=== PATIENT | female | born 1990 | race Caucasian/White ===

== ENCOUNTER 2022-05-20 19:27 | Emergency (ER) | payer SELFPAY ==
[~2022-05-20] VITALS: Ht 165.1 cm; Wt 90.7 kg
[2022-05-20 19:56] VITALS: BP_SYST 124
--- NOTE | 2022-05-20 20:39 | NUR ---
Pt bib self from home CC lower back pain radiates to thighs and bilateral extremities with numbness and tingling sensation. Onset yesterday morning pain scale 10/10 Nausea related to pain. Pt notes chronic back pain since giving child 3 years ago.
[2022-05-20] MEDS ORDERED: KETOROLAC TROMETHAMINE 60 MG/2 ML VIAL IM ONE (21:00)
--- NOTE | 2022-05-20 21:00 | NUR ---
ER at bedside examining patient.
[2022-05-20] MEDS ORDERED: METH-634 PO (21:31)
[2022-05-20] MEDS ORDERED: IBUP-1969 PO (21:31)
--- NOTE | 2022-05-20 22:52 | NUR ---
Patient given written and verbal discharge instructions and verbalizes understanding. ER MD discussed with patient the results and treatment provided. Patient in stable condition. ID arm band removed. Opportunity for questions provided and answered. Medication side effect fact sheet provided.
[2022-05-20 22:53] VITALS: BP_SYST 114
== END 2022-05-20 22:53 | disposition home or self-care (01) ==
LOC: SED 19:27
DX: M54.50 Low back pain, unspecified (principal); R20.2 Paresthesia of skin; Z91.018 Allergy to other foods; Z79.899 Other long term (current) drug therapy
CPT/HCPCS: 99283; 72100; 96372; J1885